=== PATIENT | female | born 1995 | race Caucasian/White ===

== ENCOUNTER 2017-10-01 15:37 | Emergency (ER) | payer OTHER ==
[~2017-10-01] VITALS: Ht 162.6 cm; Wt 68.0 kg
--- NOTE | ~2017-10-01 | EKG ---
[place] [address] [address] [facility] [place] [address] ELECTROCARDIOGRAM REPORT Name: CASEY HULL [facility] [id number] Admission: 10/01/17 Attend Phys: Discharge: 10/01/17 Date of : [birth year] Report #: [id number] THIS REPORT FOR: //name// [facility] Test Date: 2017-10-01 Test Time: 15:46:56 Pat Name: CASEY HULL Department: Room: Gender: F [employer]: Alejandra TOM : 1995 Requested By: Barrera Mobley Order Number: [id number] MD: Ronan Frankel Measurements Intervals [place] Rate: 95 P: 87 CA: 122 QRS: 81 QRSD: 82 T: -38 QT: 351 QTc: 442 Interpretive Statements Sinus rhythm Borderline repolarization abnormality No previous ECG available for comparison Electronically Signed On 10-02-2017 8:00:09 CDT by Ronan Frankel [email or web address] <ELECTRONICALLY SIGNED> By: Ronan Frankel MD 10/02/17 0800 [id number] MD RENE Nava
[2017-10-01 17:14] LABS: HEMATOCRIT 43.9 % (37.0-47.0); HEMOGLOBIN 15.3 gm/dL (12.0-15.0); MCH 30.1 pg (26.0-34.0); MCHC 34.9 g/dL (28.0-37.0); MCV 86.1 fL (80.0-100.0); RBC 5.1 mil/uL (4.20-5.00); RDW 13.6 % (10.5-14.5); WBC 6.7 thou/uL (4.0-11.0)
[2017-10-01 17:22] LABS: CALCIUM 9.5 mg/dL (8.5-10.1); CREATININE 1.1 mg/dL (0.6-1.0); POTASSIUM 3.8 mmol/L (3.5-5.1)
[2017-10-01] MEDS ORDERED: ULTRAM 50MG TAB50 MG PO (18:53)
[2017-10-01 19:05] VITALS: BP 108/73
== END 2017-10-01 19:06 | disposition home or self-care (01) ==
LOC: ER 15:37
PROVIDERS: Physician Assistant
DX: R07.89 Other chest pain (principal)